=== PATIENT | female | born 1980 | race Caucasian/White ===

== ENCOUNTER → 2017-08-04 | Outpatient (CLI) | payer OTHER | LOC: HPND 08:16 | PROVIDERS: ATTEND Obstetrics & Gynecology | DX: O09.522 Supervision of elderly multigravida, second trimester (principal) | CPT/HCPCS: 76811 ==

== ENCOUNTER → 2017-09-02 | Outpatient (CLI) | payer OTHER | LOC: HPND 09:02 | PROVIDERS: ATTEND Obstetrics & Gynecology | DX: O09.522 Supervision of elderly multigravida, second trimester (principal); Z36.2 Encounter for other antenatal screening follow-up | CPT/HCPCS: 76816 ==

== ENCOUNTER 2017-12-24 10:42 | Inpatient (IN) | payer MEDICAID ==
[2017-12-24] VITALS (27 sets, daily range): BP systolic 90–114; BP diastolic 50–72; PULSE 53–93; RESP 14–21; TEMP 97.6–98.2; O2SAT 98–100
[~2017-12-24] VITALS: Ht 165.1 cm; Wt 78.2 kg
[2017-12-24] MEDS ORDERED: LACTATED RINGER'S 1000 ML INJ 1,000 ML IV ONE (10:50)
--- NOTE | 2017-12-24 11:07 | HHI.HP ---
HPI Chief Complaint Scheduled C section Date Seen: Dec 24, 2017 Time Seen: 11:00 (Edmund Hartley MD R1) Travel History International Travel<30 Days: Yes Contact w/Intl Traveler<30Days: [place] of Country Traveled to: [place] Known Affected Area: No (Edmund Hartley MD R1) History of Present Illness HPI 37-year-old A2 at 37/6 presenting for scheduled without tubal ligation. 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 Patient states that she has no complaints at this time other than having occasional dysuria. She denies any gush of fluid, vaginal bleeding, decreased movement or consistent contractions. Of note she has 2 previous classical C-sections that were performed in [place] and then a transverse that was performed in 2015 at this hospital. Otherwise no complications during those /deliveries. (Edmund Hartley MD R1) History Past Medical History Medical History: Denies Significant Hx (Edmund Hartley MD R1) Obstetric History Obstetric History 3 prior C-sections, 3 spontaneous abortions early in No complications during this (Edmund Hartley MD R1) Past Surgical History Narrative Surgical 3 prior C-sections 2 classical (in 2004, 2006) and one transverse in 2016 (Edmund Hartley MD R1) Family History Family History: Negative (Edmund Hartley MD R1) Social History Alcohol Use: No Tobacco Use: No Substance Abuse: No (Edmund Hartley MD R1) Allergies-Medications (Allergen,Severity, Reaction): Coded Allergies: No Known Allergies (Unverified , 09/18/15) Home Meds No Active Prescriptions or Reported Meds Review of Systems Except as stated in HPI: all other systems reviewed are Neg (Edmund Hartley MD R1) Physical Exam Narrative GENERAL: Well-nourished, well-developed patient. SKIN: Warm and dry. HEAD: Normocephalic and atraumatic. EYES: No scleral icterus. No injection or drainage. ENT: No nasal drainage noted. Mucous membranes pink. Airway patent. NECK: Supple, trachea midline. No JVD. CARDIOVASCULAR: Regular rate and rhythm without murmurs, gallops, or rubs. RESPIRATORY: Breath sounds equal bilaterally. No accessory muscle use. ABDOMEN/GI: Abdomen soft, non-tender, bowel sounds present, no rebound, no guarding Gravid to 37 weeks size GENITOURINARY: Uterine Contractions: None FHT's: Category: 1 Baseline: 140 Reactive: Y Variability: Moderate Decels: None EXTREMITIES: No cyanosis or edema. BACK: Nontender without obvious deformity. No CVA tenderness. NEUROLOGICAL: Awake and alert. Motor and sensory grossly within normal limits. Five out of 5 muscle strength in all muscle groups. Normal speech. (Edmund Hartley MD R1) Caprini VTE Risk Assessment Caprini VTE Risk Assessment: Mod/High Risk (score >= 2) Caprini Risk Assessment Model Point Value = 1 Point Value = 2 Point Value = 3 Point Value = 5 Age 41-60 Minor surgery BMI > 25 kg/m2 Swollen legs Varicose veins or History of unexplained or recurrent spontaneous Oral contraceptives or hormone replacement Sepsis (< 1 month) Serious lung disease, including pneumonia (< 1 month) Abnormal pulmonary function Acute myocardial infarction Congestive heart failure (< 1 month) History of inflammatory bowel disease Medical patient at bed rest Age 61-74 Arthroscopic surgery Major open surgery (> 45 min) Laparoscopic surgery (> 45 min) Malignancy Confined to bed (> 72 hours) Immobilizing plaster cast Central venous access Age >= 75 History of VTE Family history of VTE Factor V Leiden Prothrombin [id number] Lupus anticoagulant Anticardiolipin antibodies Elevated serum homocysteine Heparin-induced thrombocytopenia Other congenital or acquired thrombophilia Stroke (< 1 month) Elective arthroplasty Hip, pelvis, or leg fracture Acute spinal cord injury (< 1 month) Prophylaxis Regimen Total Risk Factor Score Risk Level Prophylaxis Regimen 0-1 Low Early ambulation 2 Moderate Order ONE of the following: *Sequential Compression Device (SCD) *Heparin 5000 units SQ BID 3-4 Higher Order ONE of the following medications: *Heparin 5000 units SQ TID *Enoxaparin/Lovenox 40 mg SQ daily (WT < 150 kg, CrCl > 30 mL/min) *Enoxaparin/Lovenox 30 mg SQ daily (WT < 150 kg, CrCl > 10-29 mL/min) *Enoxaparin/Lovenox 30 mg SQ BID (WT < 150 kg, CrCl > 30 mL/min) AND/OR *Sequential Compression Device (SCD) 5 or more Highest Order ONE of the following medications: *Heparin 5000 units SQ TID (Preferred with Epidurals) *Enoxaparin/Lovenox 40 mg SQ daily (WT < 150 kg, CrCl > 30 mL/min) *Enoxaparin/Lovenox 30 mg SQ daily (WT < 150 kg, CrCl > 10-29 mL/min) *Enoxaparin/Lovenox 30 mg SQ BID (WT < 150 kg, CrCl > 30 mL/min) AND *Sequential Compression Device (SCD) (Edmund Hartley MD R1) Data Data Orders Orders Admit To Inpatient (12/24/17 ) Vital Signs (Adult) .ON ADMISSION (12/24/17 10:50) Activity Oob Ad Ana (12/24/17 10:50) Heart (12/24/17 10:50) Urinary Catheter Management MONICA.Q8H (12/24/17 10:50) ^ Preps (12/24/17 10:50) Scd / Fred / Foot Pump MONICA.QSHIFT (12/24/17 10:50) ^ Ultrasound For Locatio (12/24/17 10:50) Diet Npo (12/24/17 Lunch) Lactated Ringer's 1000 Ml Inj (Lr 1000 M (12/24/17 10:50) Lactated Ringer's 1000 Ml Inj (Lr 1000 M (12/24/17 11:20) Cefazolin 2 Gm Premix (Ancef 2 Gm Premix (12/24/17 12:00) Citric Acid-Sodium Citrate Liq (Bicitra (12/24/17 12:30) Type And Screen (12/24/17 10:50) Complete Blood Count With Diff (12/24/17 10:50) Urinalysis - C+S If Indicated (12/24/17 10:50) Drug Screen, Random Urine (12/24/17 10:50) Inpatient Certification (12/24/17 ) Specimen To Be Collected PRN (12/24/17 10:50) Specimen To Be Collected PRN (12/24/17 10:50) (Edmund Hartley MD R1) Assessment/Plan Assessment and Plan 37-year-old A2 at 37/6 began admitted for scheduled . Of note patient has 2 classical performed in 2004, 2006 and a transverse C- section performed in 2015. Patient does not desire a tubal ligation at this point. -GBS negative -Routine preop orders -We will attempt transverse incision, but patient informed that a classical may be required based on scar tissue/anatomy -Scheduled for early this afternoon (Edmund Hartley MD R1) Problem List: (1) ICD Codes: Z34.90 - Encounter for supervision of normal , unspecified , unspecified trimester (2) History of 3 sections ICD Codes: Z87.59 - Personal history of other complications of , childbirth and the puerperium Attending Attestation pt seen and examined. agree with above. pt is for repeat at 37 wks secondary to hx of 2 prior classical c-sections, 1 transverse and uterine window that has been followed by M. MFM recommended delivery today. all questions answered. pts is planning vasectomy. (Asa Reyes MD) Edmund Hartley MD R1 Dec 24, 2017 11:07 Asa Reyes MD Dec 24, 2017 12:44
[2017-12-24] MEDS ORDERED: LACTATED RINGER'S 1000 ML INJ 1,000 ML IV SCH ×2 (11:20→19:23)
[2017-12-24] MEDS ORDERED: ceFAZolin 2 GM PREMIX 50 ML IV SCH (12:00)
[2017-12-24 12:12] LABS: AUTOMATED NEUTROPHIL # 6.2 TH/MM3 (1.8-7.7); BASOPHIL % 0.4 % (0.0-2.0); EOSINOPHIL % 0.5 % (0.0-4.0); HEMATOCRIT 37.4 % (35.0-46.0); HEMOGLOBIN 12.8 GM/DL (11.6-15.3); LYMPH % 18.4 % (9.0-44.0); LYMPHOCYTE # 1.5 TH/MM3 (1.0-4.8); MEAN CELL VOLUME 88.6 FL (80.0-100.0); MEAN CORPUSCULAR HEMOGLOBIN 30.4 PG (27.0-34.0); MEAN CORPUSCULAR HGB CONC 34.3 % (32.0-36.0); MEAN PLATELET VOLUME 9.2 FL (7.0-11.0); MONO % 3.9 % (0.0-8.0); MONOCYTE # 0.3 TH/MM3 (0-0.9); NEUT % 76.8 % (16.0-70.0); PLATELET COUNT 206 TH/MM3 (150-450); RED BLOOD COUNT 4.22 MIL/MM3 (4.00-5.30)
[2017-12-24] MEDS ORDERED: CITRIC ACID-SODIUM CITRATE LIQ 30 ML UDC PO SCH (12:30)
[2017-12-24 12:33] LABS: BACTERIA, URINE OCC /hpf; BILIRUBIN, URINE NEG (NEG); BLOOD, URINE NEG (NEG); GLUCOSE,URINE NEG (NEG); KETONE, URINE NEG (NEG); MUCUS URINE FEW /lpf (OCC); NITRITE,URINE NEG (NEG); SQUAMOUS EPITHELIAL CELL URINE 10 /hpf (0-5); URINE COLOR YELLOW (YELLW/STRAW); URINE LEUKOCYTE ESTERASE LARGE (NEG)
[2017-12-24] MEDS ORDERED: OXYTOCIN 30 UNITS-500ML PREMIX 500 ML ONE (12:38)
[2017-12-24] MEDS ORDERED: MORPHINE SULFATE PF 5 MG/10 ML VIAL ONE (13:05)
[2017-12-24] MEDS ORDERED: ACETAMINOPHEN 1000 MG/100 ML 100 ML IV ONE ×2 (13:06→14:30)
[2017-12-24] MEDS ORDERED: OXYTOCIN 30 UNITS-500ML PREMIX 500 ML IV ONE (14:30)
[2017-12-24] MEDS ORDERED: ACETAMINOPHEN 325 MG TAB PO PRN (14:30)
[2017-12-24] MEDS ORDERED: SODIUM CHLORIDE 0.9% FLUSH 10 ML FLUSH IV FLUSH PRN (14:30)
[2017-12-24] MEDS ORDERED: ZOLPIDEM TARTRATE 5 MG TAB PO PRN (14:30)
[2017-12-24] MEDS ORDERED: SIMETHICONE 80 MG CHEWABLE TAB PO PRN (14:30)
[2017-12-24] MEDS ORDERED: oxyCODONE/ACETAMINOPHEN 5 MG/325 MG TAB PO PRN (14:30)
--- NOTE | 2017-12-24 16:14 | PD.OB.DELI ---
Procedure Note Section Procedure Pre Op Diagnosis: (1) History of 3 sections Post Op Diagnosis: (1) History of 3 sections Performed by Asa Reyes MD Procedure: Repeat Low Transverse Sec Indication for delivery: Desired elective repeat Informed consent obtained: For procedure Confirmed correct: Patient, Procedure, Time-out taken Anesthesia: Spinal Medication prior to procedure: As documented in eMAR Urinary catheter: Inserted using sterile technique, To dependent drainage Sterile preparation: Duraprep Position: Supine with wedge to left side Operative Features Skin Incision: Pfannenstiel Uterine Incision: Low transverse w/knife / blunt ext Membranes Ruptured: Artificially Presentation: Occiput anterior Delivery date: Dec 24, 2017 Delivery time: 13:46 Delivery of infant: Uneventful Infant: Female, Single One Minute : 8 Five Minute : 9 Weight: 3285 Status of : Viable Placenta delivered: Intact Medications: Antibiotics, Oxytocin Estimated blood loss: 600 ml Procedure tolerated: Well Maternal Condition: Stable Condition: Stable Procedure in detail After informed consent was obtained, she consented. Her previous pfannenstiel incision is incised in the usual fashion. The underlying layer of fascia is reached using the Bovie. The fascia is incised in the midline and the incision is extended laterally. Remedios clamps were used to elevate the fascia superiorly and inferiorly and the rectus muscles are dissected off. The peritoneum was identified and entered sharply. The bladder blade was inserted. The vesicouterine peritoneum was identified, tented open and entered sharply. The bladder blade was then reinserted. A transverse incision was made over the lower uterine segment, which was extremely thin, just exposing membranes; these were ruptured for clear fluid. The uterine incision was extended laterally digitally. The infant vertex is then delivered atraumatically through the incision followed by the remainder of the 's body. The cord is doubly clamped and cut. The is passed off to the waiting nursery team. Once this was done, attention is then turned back to the uterine field. The placenta is removed manually intact with three- vessel cord. The uterus was exteriorized, cleared of all clot and debris. The uterine incision was repaired using 1 Chromic suture in a running locked fashion. Once this was done attention was then turned back to the uterine incision which remained hemostatic. The tubes and ovaries were inspected and noted to be within normal limits. The uterus was returned to the abdominal cavity. The gutters were cleared of all clot and debris. Seprafilm was placed over the incision. The rectus muscles were re-approximated using 0 Chromic suture in interrupted fashion. The fascia was re-approximated using 1 Vicryl suture in a running fashion. The subcutaneous fat is irrigated and made hemostatic and re- approximated using 3-0 Chromic suture. The skin is closed using 3-0 Monocryl suture. Asa Reyes MD Dec 24, 2017 16:14
[2017-12-24] MEDS ORDERED: EPIDURAL-DIPHENHYDRAMINE HCL 50 MG CAP PO PRN (16:15)
[2017-12-24] MEDS ORDERED: EPIDURAL-NALOXONE HCL 0.4 MG/ML AMP IV PUSH PRN (16:15)
[2017-12-24] MEDS ORDERED: EPIDURAL-DO NOT ADMINISTER ANTICOAGULANTS PRN (16:15)
[2017-12-24] MEDS ORDERED: EPIDURAL-NO SYSTEMIC NARCOTICS PRN (16:15)
[2017-12-24] MEDS ORDERED: EPIDURAL-DIPHENHYDRAMINE HCL 50 MG/ML VIAL IV PUSH PRN (16:15)
[2017-12-24] MEDS ORDERED: OXYTOCIN 30 UNITS-500ML PREMIX 500 ML IV PRN (19:30)
[2017-12-24] MEDS ORDERED: SODIUM CHLORIDE 0.9% FLUSH 10 ML FLUSH IV FLUSH SCH (21:00)
[2017-12-24] MEDS: ONDANSETRON ODT 4 MG TAB PO PRN (23:09)
[2017-12-25 02:30] VITALS: BP 92/53
[2017-12-25 02:41] VITALS: PULSE 49; RESP 18; TEMP 97.7
[2017-12-25] MEDS: IBUPROFEN 600 MG TAB PO PRN ×4 (05:06→21:34)
[2017-12-25 05:24] LABS: AUTOMATED NEUTROPHIL # 7.9 TH/MM3 (1.8-7.7); BASOPHIL % 0.3 % (0.0-2.0); EOSINOPHIL % 0.1 % (0.0-4.0); HEMATOCRIT 33.7 % (35.0-46.0); HEMOGLOBIN 11.5 GM/DL (11.6-15.3); LYMPH % 16.2 % (9.0-44.0); LYMPHOCYTE # 1.6 TH/MM3 (1.0-4.8); MEAN CELL VOLUME 90.3 FL (80.0-100.0); MEAN CORPUSCULAR HEMOGLOBIN 30.8 PG (27.0-34.0); MEAN CORPUSCULAR HGB CONC 34.2 % (32.0-36.0); MEAN PLATELET VOLUME 8.6 FL (7.0-11.0); MONO % 5.4 % (0.0-8.0); MONOCYTE # 0.5 TH/MM3 (0-0.9); PLATELET COUNT 191 TH/MM3 (150-450); RED BLOOD COUNT 3.74 MIL/MM3 (4.00-5.30); RED CELL DISTRIBUTION WIDTH 14.1 % (11.6-17.2); WHITE BLOOD COUNT 10.2 TH/MM3 (4.0-11.0)
[2017-12-25 05:56] VITALS: BP 80/42; PULSE 56; RESP 18; TEMP 97.9
[2017-12-25] MEDS: ONDANSETRON ODT 4 MG TAB PO PRN (07:16)
--- NOTE | 2017-12-25 09:37 | HHI.OB ---
Subjective Post Operative Day: 1 Remarks Patient is a 37-year-old delivered at 37 weeks and 6 days. Patient is postop day 1 after . Patient's pain is well-controlled. Patient reports eating and drinking last night with one episode of vomiting. Patient reports minimal bleeding. Patient has not yet passed gas or bowel movements. Patient is walking without lower extremity pain or shortness of breath. Patient reports desire for breast-feeding. Objective Vitals/I&O Vital Signs Date Time Temp Pulse Resp B/P (MAP) Pulse Ox O2 Delivery O2 Flow Rate FiO2 12/25/17 05:56 97.9 56 18 80/42 (55) 12/25/17 02:41 97.7 18 12/25/17 02:41 49 12/25/17 02:30 92/53 (66) 12/24/17 19:47 97.8 54 20 103/62 (76) 12/24/17 16:19 97.6 57 18 106/63 (77) 99 12/24/17 15:36 18 99 12/24/17 15:36 55 12/24/17 15:35 93/52 (66) 12/24/17 15:30 97.7 12/24/17 15:29 19 99 12/24/17 15:29 56 96/54 (68) 12/24/17 15:11 59 21 93/50 (64) 99 12/24/17 15:01 53 14 12/24/17 15:01 98 12/24/17 15:01 90/55 (67) 12/24/17 15:01 19 12/24/17 14:50 57 20 97/52 (67) 99 12/24/17 14:30 97.7 57 16 93/51 (65) 100 12/24/17 12:45 98.2 12/24/17 12:32 71 114/72 (86) 12/24/17 12:15 75 100 12/24/17 12:10 76 100 12/24/17 12:05 75 100 12/24/17 12:00 78 100 12/24/17 11:55 75 100 12/24/17 11:50 77 100 12/24/17 11:47 98.2 12/24/17 11:45 84 100 12/24/17 11:40 72 100 12/24/17 11:35 93 99 6/22/18 11:30 92 100 12/24/17 11:25 91 12/24/17 11:25 100 12/24/17 11:20 86 12/24/17 11:20 100 12/24/17 11:15 99 12/24/17 11:15 98.2 12/24/17 11:15 90 12/24/17 11:12 84 107/65 (79) Result Diagram: 12/25/17 0510 Objective Remarks GENERAL: Well-nourished, well-developed patient. CARDIOVASCULAR: Regular rate and rhythm without murmurs, gallops, or rubs. RESPIRATORY: Breath sounds equal bilaterally. No accessory muscle use. ABDOMEN/GI: Abdomen soft, non-tender, bowel sounds present. Incision: Clean, dry and intact. Fundus: Firm, non-tender at umbilicus. GENITOURINARY: Light to moderate bleeding. EXTREMITIES: No cyanosis or edema, non-tender, without signs of DVT. Medications and IVs Current Medications Medications (Trade) Dose Ordered Sig/Senia Route Start Time Stop Time Status Last Admin Cefazolin Sodium/ Dextrose 50 ml @ 100 mls/hr EVENT OPERATIONS MANAGER IV 12/24/17 12:00 12/28/17 11:59 12/24/17 12:49 (Bicitra Liq) 30 ml EVENT OPERATIONS MANAGER PO 12/24/17 12:30 12/28/17 12:29 12/24/17 12:49 Lactated Ringer's 1,000 ml @ 100 mls/hr Q10H IV 12/24/17 19:23 12/25/17 15:22 12/24/17 23:10 Oxytocin 500 ml @ 100 mls/hr UNSCH X1 PRN IV 12/24/17 19:30 12/25/17 19:29 (NS Flush) 2 ml BID IV FLUSH 12/24/17 21:00 (NS Flush) 2 ml UNSCH PRN IV FLUSH 12/24/17 14:30 (Mylicon Chew) 80 mg QID PRN PO 12/24/17 14:30 (Tylenol) 650 mg Q6H PRN PO 12/24/17 14:30 (Motrin) 600 mg Q6H PRN PO 12/24/17 14:30 12/25/17 05:06 (Percocet 5-325 Mg) 1 tab Q4H PRN PO 12/24/17 14:30 (Percocet 5-325 Mg) 2 tab Q4H PRN PO 12/24/17 14:30 (Heather-Colace) 2 tab Q12H PRN PO 12/24/17 14:30 (Ambien) 5 mg HS PRN PO 12/24/17 14:30 (M-M-R Ii Inj) 0.5 ml ONCE ONCE SQ 12/25/17 16:00 12/25/17 16:01 (Boostrix Inj) 0.5 ml ONCE ONCE IM 12/25/17 16:00 12/25/17 16:01 ([facility]) NO SYSTEMIC NARCOTICS TO BE GIVEN FO... UNSCH PRN .XX 12/24/17 16:15 12/25/17 16:14 (Narcan Inj) 0.4 mg UNSCH PRN IV PUSH 12/24/17 16:15 12/25/17 16:14 (Benadryl Inj) 25 mg Q6H PRN IV PUSH 12/24/17 16:15 12/25/17 16:14 (Benadryl) 50 mg Q6H PRN PO 12/24/17 16:15 12/25/17 16:14 ([facility]) ALL NURSING DEPARTMENTS UNSCH PRN .XX 12/24/17 16:15 12/25/17 16:14 (Zofran Odt) 4 mg Q6H PRN PO 12/24/17 23:00 12/25/17 07:16 Assessment/Plan Problem List: (1) ICD Codes: Z34.90 - Encounter for supervision of normal , unspecified , unspecified trimester (2) History of 3 sections ICD Codes: Z87.59 - Personal history of other complications of , childbirth and the puerperium Assessment and Plan Patient is a 37-year-old delivered at 37 weeks and 6 days. Patient is postop day 1 after scheduled repeat . Patient was counseled to do 6 weeks of pelvic rest. Patient was counseled to follow up in 1 week for an incision check and again in 6 weeks. Patient requested follow-up and breast- feeding. --AF VSS --Continue routine care --Motrin and Percocet when necessary for pain --Encourage OOB --Pelvic rest for 6 weeks will need follow-up appointment at that time. --Contraception: planning on vasectomy --Anticipate discharge tomorrow or the next day Rashel Ledesma MD R2 Dec 25, 2017 09:37
[2017-12-25] MEDS: DOCUSATE SODIUM 50 MG/SENNA 8.6 MG TAB PO PRN ×2 (11:03→21:33)
[2017-12-25] MEDS ORDERED: DIPHTH/TETANUS/ACEL PERTUSSIS (BOOSTER) 0.5 ML VIAL/PFS IM ONE (16:00)
[2017-12-25] MEDS ORDERED: MEASLES, MUMPS, RUBELLA VACCINE 0.5 ML VIAL SQ ONE (16:00)
[2017-12-25 20:45] VITALS: BP 110/60; PULSE 58; RESP 18; TEMP 98
[2017-12-25 21:45] VITALS: BP 110/60; PULSE 58; RESP 18; TEMP 98
[2017-12-25] MEDS: oxyCODONE/ACETAMINOPHEN 5 MG/325 MG TAB PO PRN (23:53)
--- NOTE | 2017-12-26 07:39 | HHI.OB ---
Subjective Post Operative Day: 2 Remarks Patient seen and examined this morning. AFVSS overnight. Postoperative day #2. Pain well-controlled. Incision not draining. Decreased lochia. Denies dysuria. No breast tenderness. She is feeding the baby via breast. Appetite good. No nausea or vomiting. Positive flatus. No bowel movement. Ambulating well. Denies calf pain, shortness of breath, or cough. She otherwise has no other complaints or concerns this morning. (Billy Sandhu MD, R1) Remarks Patient seen and evaluated with resident under direct supervision, agree with assessment and plan. (Scott Juan MD) Objective Vitals/I&O Vital Signs Date Time Temp Pulse Resp B/P (MAP) Pulse Ox O2 Delivery O2 Flow Rate FiO2 12/25/17 21:45 58 18 110/60 (77) 12/25/17 21:45 98.0 12/25/17 20:45 98.0 58 18 110/60 (77) (Billy Sandhu MD, R1) Result Diagram: 12/25/17 0510 Objective Remarks GENERAL: Well-nourished, well-developed patient. CARDIOVASCULAR: Regular rate and rhythm without murmurs, gallops, or rubs. RESPIRATORY: Breath sounds equal bilaterally. No accessory muscle use. ABDOMEN/GI: Abdomen soft, non-tender, bowel sounds present. Incision: Clean, dry and intact. Fundus: Firm, non-tender at umbilicus. GENITOURINARY: Light bleeding. EXTREMITIES: No cyanosis or edema, non-tender, without signs of DVT. Medications and IVs Current Medications Medications (Trade) Dose Ordered Sig/Senia Route Start Time Stop Time Status Last Admin Cefazolin Sodium/ Dextrose 50 ml @ 100 mls/hr RADIO OPERATOR GROUND IV 12/24/17 12:00 12/28/17 11:59 12/24/17 12:49 (Bicitra Liq) 30 ml RADIO OPERATOR GROUND PO 12/24/17 12:30 12/28/17 12:29 12/24/17 12:49 (NS Flush) 2 ml BID IV FLUSH 12/24/17 21:00 (NS Flush) 2 ml UNSCH PRN IV FLUSH 12/24/17 14:30 (Mylicon Chew) 80 mg QID PRN PO 12/24/17 14:30 (Tylenol) 650 mg Q6H PRN PO 12/24/17 14:30 (Motrin) 600 mg Q6H PRN PO 12/24/17 14:30 12/25/17 21:34 (Percocet 5-325 Mg) 1 tab Q4H PRN PO 12/24/17 14:30 12/25/17 23:53 (Percocet 5-325 Mg) 2 tab Q4H PRN PO 12/24/17 14:30 (Heather-Colace) 2 tab Q12H PRN PO 12/24/17 14:30 12/25/17 21:33 (Ambien) 5 mg HS PRN PO 12/24/17 14:30 (Zofran Odt) 4 mg Q6H PRN PO 12/24/17 23:00 12/25/17 07:16 (Billy Sandhu MD, R1) Assessment/Plan Problem List: (1) ICD Codes: Z34.90 - Encounter for supervision of normal , unspecified , unspecified trimester (2) History of 3 sections ICD Codes: Z87.59 - Personal history of other complications of , childbirth and the puerperium Assessment and Plan Patient is a 37-year-old delivered at 37 weeks and 6 days. Patient is postop day 2 after scheduled repeat . Patient was counseled to do 6 weeks of pelvic rest. Patient was counseled to follow up in 1 week for an incision check and again in 6 weeks. Patient requested follow-up and breast- feeding. --AF VSS --Continue routine care --Motrin and Percocet when necessary for pain --Encourage OOB --Pelvic rest for 6 weeks will need follow-up appointment at that time. --Contraception: planning on vasectomy --Anticipate discharge tomorrow (Billy Sandhu MD, R1) Billy Sandhu MD, R1 Dec 26, 2017 07:39 Scott Juan MD Dec 26, 2017 09:52
[2017-12-26 08:20] VITALS: BP 105/64; PULSE 50; RESP 16; TEMP 97.6
[2017-12-26 08:30] VITALS: BP 110/55; PULSE 74; RESP 16; TEMP 99
[2017-12-26] MEDS ORDERED: IBUP-232 PO (09:06)
[2017-12-26] MEDS ORDERED: Simethicone Chew PO (09:06)
[2017-12-26] MEDS ORDERED: OXYC1TAB63 PO (09:06)
[2017-12-26] MEDS ORDERED: PERI PO (09:06)
--- NOTE | 2017-12-26 09:07 | HHI.DCPOC ---
Discharge Care Plan Diagnosis: (1) Status post repeat low transverse section Report Symptoms to Your Doctor -Temperature above 100.5 degrees -Redness, of incision or excessive or foul smelling drainage -Unusual pain or calf pain -Increased vaginal bleeding -Painful or difficulty urinating -Feelings of extreme sadness or anxiety after 2 weeks Goals to Promote Your Health * To prevent worsening of your condition and complications, please follow up with your doctor. Directions to Meet Your Goals Take your medications as prescribed Follow your dietary instruction Follow activity as directed Ensure plenty of rest for recovery Drink fluids for hydration Keep your appointments as scheduled Take your immunizations and boosters as scheduled If your symptoms worsen call your PCP, if no PCP go to Urgent Care Center or Emergency Room Smoking is Dangerous to Your Health. Avoid second hand smoke Call the 24-hour crisis hotline for domestic abuse at Rashel Ledesma MD R2 Dec 26, 2017 09:07 Scott Juan MD Dec 26, 2017 09:51
[2017-12-26] MEDS: DOCUSATE SODIUM 50 MG/SENNA 8.6 MG TAB PO PRN (09:11)
[2017-12-26] MEDS: oxyCODONE/ACETAMINOPHEN 5 MG/325 MG TAB PO PRN ×2 (09:12→14:32)
[2017-12-26] MEDS: IBUPROFEN 600 MG TAB PO PRN (14:32)
== END 2017-12-26 15:17 | disposition home or self-care (01) | DRG 766 ==
LOC: H2EB 10:42 → H1EA 16:35
PROVIDERS: ADMIT Obstetrics & Gynecology; ATTEND Obstetrics & Gynecology
PROC: 10D00Z1 Extraction of Products of Conception, Low, Open Approach (ICD-10-PCS; principal; 2017-12-24)
DX: O34.211 Maternal care for low transverse scar from previous cesarean delivery (principal); Z37.0 Single live birth; Z3A.37 37 weeks gestation of pregnancy
CPT/HCPCS: 80307; 81001; 85025; 86850; 86900; 86901; 90715; J0131; J0690; J2274; J2590; J7120